=== PATIENT | male | born 1995 | race Caucasian/White ===

== ENCOUNTER 2018-08-12 11:34 | Emergency (ER) | payer OTHER, SELFPAY ==
[2018-08-12 12:09] VITALS: BP 136/77; PULSE 84; RESP 18; TEMP 36.6; O2SAT 98; BMI 31.6
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
--- NOTE | 2018-08-12 13:00 | PC.NURSE ---
pt given ice pack applied
[2018-08-12 13:04] VITALS: BP 135/74; PULSE 74; RESP 18; TEMP 36.6; O2SAT 98
== END 2018-08-12 13:05 | disposition home or self-care (01) ==
LOC: UTC 11:46 → ER 11:50
PROVIDERS: Emergency Provider Emergency Medicine
DX: S60.222A Contusion of left hand, initial encounter (principal); S50.812A Abrasion of left forearm, initial encounter; V43.52XA Car driver injured in collision with other type car in traffic accident, initial encounter; Y92.414 Local residential or business street as the place of occurrence of the external cause
CPT/HCPCS: 99281

== ENCOUNTER → 2020-12-28 12:24 | Outpatient (CLI) | payer OTHER, SELFPAY | PROVIDERS: Visit Provider Nurse Practitioner Family | DX: Z20.822 Contact with and (suspected) exposure to COVID-19 (principal); U07.1 COVID-19 | CPT/HCPCS: C9803; U0003; U0005 ==

== ENCOUNTER 2021-12-24 08:32 | Emergency (ER) | payer BC, SELFPAY ==
[2021-12-24 08:45] VITALS: BP 151/103; PULSE 70; RESP 20; TEMP 36.9; O2SAT 97; BMI 36.8
--- NOTE | 2021-12-24 08:54 | EXP.UTC ---
Discharge Plan Disposition Patient Disposition: Home, Self-Care Condition: Good Prescriptions Prescriptions: No Action No Known Home Medications Referrals Follow up/Referrals: Provider,Referral, MD [Primary Care Provider] - See instructions Activity Restrictions/Add. Instructions Additional Instructions/Restrictions: *Monitor Temp, Over the counter Motrin or Tylenol as directed/as needed Tylenol every 4 hours and Motrin every 6 hours (as long as your family doctor has told you that you can take it) for fever or pain. and straight to ER if unable to lower temp less than 101.0 after medication given *Warm salt water gargles may help to soothe the throat *Throat Lozenges? *Warm fluids like tea with honey may help to soothe the throat? *Sleep elevated *Humidifier/Vaporizer Follow up IMMEDIATELY for new or worsening symptoms or no Noticeable improvement over the next 48-72 hours. 911 for difficulty breathing or swallowing You were tested for today for COVID19 your test result should be back in the next 24-48 hours, you may call to the [facility] to see if your test results are back in the next 48 hours ?[phone] [facility] hours are 9am-9pm Clinical Impressions Clinical Impression: Viral syndrome Stand Alone Forms Stand Alone Forms: Work/School Release Instructions Patient Instructions: DI for Viral Syndrome Discharge ED Provider: Sharri Mariano [facility] [place] H[place] General Stated complaint: cough, stomach pain, body aches Time Seen by Provider: 12/24/21 08:54 History of Present Illness Provider Complaint: Patient states he has been sick for few days but he is feeling better now States that he had diarrhea, body aches and cough States that his symptoms have subsided but work is wanting him to get tested for COVID Related Data Home Medications Medication Instructions Recorded Confirmed No Known Home Medications 08/12/18 08/12/18 Allergies Allergy/AdvReac Type Severity Reaction Status Date / Time No Known Allergies Allergy Verified 08/12/18 12:20 [facility] Medical History (Updated 12/24/21 @ 09:00 by Sharri Mariano APRN) No significant past medical history Social History (Updated 12/24/21 @ 08:56 by Nia Powell RN) Smoking Status: Never smoker alcohol intake: never current occupational status: other Travel in the last 8 weeks: None ROS Obtained: Yes All systems reviewed & no additional complaints except as documented and Yes Systems reviewed as appropriate & no additional complaints except as documented Constitutional Constitutional: Reports system reviewed and no additional complaints, except as documented, Reports as per HPI and Reports body ache ENT Ears, Nose, Mouth, and Throat: Reports system reviewed and no additional complaints, except as documented and Reports as per HPI Cardiovascular Cardiovascular: Reports system reviewed and no additional complaints, except as documented and Reports as per HPI Respiratory Respiratory: Reports system reviewed and no additional complaints, except as documented, Reports as per HPI and Reports cough Gastrointestinal Gastrointestingal: Reports system reviewed and no additional complaints, except as documented, as per HPI, cramping and diarrhea Physical Exam General General appearance: alert and in no apparent distress ENT ENT exam: Present mucous membranes moist Respiratory Respiratory exam: Present normal lung sounds bilaterally; Absent respiratory distress or wheezes Cardiovascular Cardiovascular exam: Present regular rate, normal rhythm and normal heart sounds Abdominal Exam Abdominal exam: Present soft and normal bowel sounds; Absent distention or tenderness Neurological Exam Neurological exam: Present alert, oriented X3 and normal gait Medical Decision Making Michael Inquiry Pt receiving controlled substance: No Michael was queried for this patient: No Lab Data Lab results reviewed: Yes I reviewed the patie
[2021-12-24 09:03] VITALS: BP 151/103; PULSE 70; RESP 20; TEMP 36.9; O2SAT 97
[2021-12-24 09:05] LABS: UTC Influenza A Antigen Negative (Negative); UTC Influenza B Antigen Negative (Negative)
== END 2021-12-24 09:10 | disposition home or self-care (01) ==
PROVIDERS: Emergency Provider Nurse Practitioner
DX: R05.9 Cough, unspecified (principal); R10.9 Unspecified abdominal pain; B34.9 Viral infection, unspecified
CPT/HCPCS: 87804; 99212; C9803; G0463; U0003; U0005